=== PATIENT | male | born 1975 | race Two or more races ===

== ENCOUNTER 2021-04-20 06:57 | Day surgery (SDC) | payer OTHER ==
[~2021-04-20 06:57] MED LIST: ALENDRONATE SOD70 MG PO; AMLODIPINE PO; ATORVASTATIN CA20 MG PO; GABAPEN PO; IBERSARTAN PO; SUPER B-50 COM1 EACH PO
== END 2021-04-20 21:00 | disposition home or self-care (01) ==
LOC: CIR.AMB 06:57
PROVIDERS: ATTEND Colon & Rectal Surgery
DX: K64.4 Residual hemorrhoidal skin tags (principal); K64.8 Other hemorrhoids; Z20.822 Contact with and (suspected) exposure to COVID-19